=== PATIENT | female | born 1950 | race Caucasian/White ===

== ENCOUNTER → 2017-02-12 | Outpatient (CLI) | payer MEDICARE, BC | END | disposition home or self-care (01) | LOC: WOUND 13:46 | PROVIDERS: ATTEND Internal Medicine Cardiovascular Disease | DX: I83.892 Varicose veins of left lower extremity with other complications (principal) | CPT/HCPCS: 36475 ==

== ENCOUNTER → 2017-02-15 | Outpatient (CLI) | payer MEDICARE, BC | END | disposition home or self-care (01) | LOC: CVU 06:47 → EDSTATUS 07:00 | PROVIDERS: ATTEND Internal Medicine Cardiovascular Disease | DX: I87.2 Venous insufficiency (chronic) (peripheral) (principal) | CPT/HCPCS: 93971 ==

== ENCOUNTER → 2018-05-21 | Outpatient (CLI) | payer MEDICARE, BC | END | disposition home or self-care (01) | LOC: CFH 06:43 | PROVIDERS: ATTEND Internal Medicine Cardiovascular Disease | DX: I11.9 Hypertensive heart disease without heart failure (principal); E78.5 Hyperlipidemia, unspecified; E11.9 Type 2 diabetes mellitus without complications | CPT/HCPCS: 93306 ==

== ENCOUNTER 2020-08-11 08:01 | Outpatient (CLI) | payer MEDICARE, BC ==
[~2020-08-11 08:01] MED LIST: AMLO2.5T5 PO; ASCO-96 PO; ASPI81TA45 PO; ATOR10TA9 PO; CALC-173 PO; CHLO50TA PO; CYCL10TA2 PO; GABA-826 PO; HYDR-3248 PO; IBUP200T64 PO; INSU300I SC; LEVO75TA PO; LIRA0.6P SC; LOSA100T14 PO; MELO7.5T31 PO; META800T PO; METF500T17 PO; METO-93 PO; MULT-717 PO; NAPR220T77 PO; NARA2.5T4 PO; NOVOLOG SC; SULF1TAB24 PO
== END 2020-08-11 23:59 | disposition home or self-care (01) ==
LOC: CFH 08:01 → RAD 23:59
DX: Z13.820 Encounter for screening for osteoporosis (principal); N95.9 Unspecified menopausal and perimenopausal disorder; R94.02 Abnormal brain scan; Q25.46 Tortuous aortic arch
CPT/HCPCS: 70544; 77080